=== PATIENT | male | born 1965 | race Two or more races ===

== ENCOUNTER 2025-02-17 23:10 | Emergency (ER) | payer MEDICARE, MEDICAID, SELFPAY ==
[2025-02-17 23:13] VITALS: BMI 26.2
--- NOTE | 2025-02-17 23:22 | EKG_ITS ---
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
[2025-02-17 23:36] VITALS: BP 148/94; PULSE 87; RESP 20; TEMP 36.7; O2SAT 96
--- NOTE | 2025-02-17 23:53 | XR_ITS ---
Examination: PA chest single view TECHNIQUE: Upright PA chest single view Date and time: February 18, 2025, 0013 hours, comparison April 03, 2015 INDICATIONS: Chest pain weakness today. FINDINGS: Normal heart size. Lungs are clear. The osseous structures are intact IMPRESSION: No active disease.
--- NOTE | 2025-02-17 23:53 | PD.EDRME ---
Rapid Medical Screening Exam RME Arrival date/time: 02/17/25 23:10 59M with history of HTN (been rationing HTN meds due to trying to find a PCP) presents to ED with 1 day of ALFARO, back, and weakness. Patient checked BP and it was high. Chief Complaint: General Adult/Misc Complain Time Seen by Provider: 02/18/25 00:59 Vital signs: Vital Signs Temperature 98.1 F 02/17/25 23:36 Pulse Rate 87 02/17/25 23:36 Respiratory Rate 20 02/17/25 23:36 Blood Pressure 148/94 H 02/17/25 23:36 Pulse Oximetry (%) 96 02/17/25 23:36 Oxygen Delivery Method Room Air 02/17/25 23:36
[2025-02-18 00:39] LABS: Collection Type, Urine Clean Catch
[2025-02-18 00:46] LABS: Bilirubin,Urine Negative (Negative); Blood,Urine Negative (Negative); Clarity,Urine Clear (Clear/Hazy); Color,Urine Lt-Yellow (Lt Yel-Yel); Culture Indicated,Urine Not Indicated; Glucose, Urine Negative (Negative); Ketones,Urine Negative (Negative); Leukocyte Esterase,Urine Negative (Negative); Nitrite,Urine Negative (Negative); PH,Urine 6.0 (5.0-7.0); Protein,Urine Trace (Neg - Trace); RBC,Urine 2 /hpf (0-3); Specific Gravity,Urine 1.024 (1.001-1.035); Squamous Epithelial Cell,Urine 1 /hpf (0-5); Urobilinogen,Urine Negative mg/dL (0.0-1.0); WBC,Urine 2 /hpf (0-5)
[2025-02-18 00:54] LABS: Amphetamine/Methamp Scrn,U Negative (Negative); Barbiturate Screen,Urine Negative (Negative); Benzodiazepines Screen,Urine Negative (Negative); Benzoylecgonine Screen, Ur Negative (Negative); Fentanyl Screen,Urine Negative (Negative); Opiate Screen,Urine Negative (Negative); THC Screen,Urine Positive (Negative)
[2025-02-18 01:12] LABS: Alanine Aminotransferase 20 U/L (10-49); Albumin, Serum 4.9 gm/dL (3.4-4.8); Albumin/Globulin Ratio 1.6 (1.2-2.2); Alkaline Phosphatase 83 U/L (46-116); Anion Gap 8 (7-16); Aspartate Amino Transferase 21 U/L (0-34); BUN/Creatinine Ratio 9 Ratio (12-20); Basophils # (Auto) 0.1 Thou/mm3 (0.0-0.2); Basophils % (Auto) 1 % (0-2.5); Bilirubin,Total 0.4 mg/dL (0.3-1.2); Blood Urea Nitrogen 13 mg/dL (9-23); Calcium 10.1 mg/dL (8.3-10.6); Calcium (Corrected) 10.1 mg/dL (8.5-10.1); Carbon Dioxide 25.7 mMol/L (20.0-31.0); Chloride 106 mMol/L (98-107); Creatinine (Component) 1.4 mg/dL (0.6-1.3); Eosinophils # (Auto) 0.0 Thou/mm3 (0.0-0.5); Eosinophils % (Auto) 0 % (0-10); Estimated Creatinine Clearance 59.0 mL/min (>60); Globulin 3.0 gm/dL (2.3-3.5); Glucose 99 mg/dL (74-106); Hematocrit 41.6 % (41.0-53.0); Hemoglobin 13.9 g/dL (13.5-16.0); Immature Granulocytes Auto 0.02 Thou/mm3 (0.00-0.00); Lymphocytes # (Auto) 1.8 Thou/mm3 (1.0-4.8); Lymphocytes % (Auto) 23 % (10-50); Mean Corpuscular HGB Conc 33.4 g/dl (31.0-37.0); Mean Corpuscular Hemoglobin 30.8 pg (25.0-35.0); Mean Corpuscular Volume 92 fL (80-100); Monocytes # (Auto) 1.1 Thou/mm3 (0.0-0.8); Monocytes % (Auto) 14 % (0-12); Neutrophils # (Auto) 4.7 Thou/mm3 (1.8-7.7); Neutrophils % (Auto) 62 % (37-80); Nucleated Red Blood Cell # 0.00 Thou/mm3 (0.00-0.00); Nucleated Red Blood Cell % 0 /100 WBC (0); Osmolality,Calculated 279 (275-295); Platelet Count 254 Thou/mm3 (140-440); Potassium 4.2 mMol/L (3.4-5.1); RDW Standard Deviation 47.6 fL (35.1-43.9); Red Blood Count 4.52 Miln/mm3 (4.50-5.90); Sodium 140 mMol/L (136-145); Total Protein 7.9 gm/dL (5.7-8.2); Troponin I < 0.020 ng/mL (0.0-0.045); White Blood Count 7.7 Thou/mm3 (3.8-10.6); eGFR 57 See Note
--- NOTE | 2025-02-18 02:32 | PD.EDRECHK ---
ED Recheck Abnl Lab Rx-RME/HPI General Chief Complaint: General Adult/Misc Complain Stated Complaint: HIGH BP TODAY Time Seen by Provider: 02/18/25 00:59 Arrival date/time: 02/17/25 23:10 RME / HPI RME / HPI narrative: 02/17/25 23:10 59M with history of HTN (been rationing HTN meds due to trying to find a PCP) presents to ED with 1 day of ALFARO, back, and weakness. Patient checked BP and it was high. DR. NIEVES MAIN ED EVALUATION: Patient with longstanding HTN off Lisinopril x 1 week due to insurance change and inability to obtain medication with recent onset headache, blood pressure of 198/103 at home. No nausea, vomiting, visual disturbances or disequilibrium. No report of chest pain or shortness or breath. PMH includes HTN only. SHx includes elbow surgery. Social history includes occasional tobacco use, but no alcohol or illicit drug use. No allergies reported. Related Data Home Medications ?Medication ?Instructions ?Recorded ?Confirmed lisinopril 20 mg tablet 20 mg PO QDAY #0 tabs 01/30/16 Previous Rx's ?Medication ?Instructions ?Recorded Hydrocodone/Acetaminophen * (NORCO 1 tab PO Q6H PRN pain #15 tabs 01/30/16 5/325 *) lisinopril 10 mg tablet 10 mg PO QDAY #30 tabs 02/18/25 Allergies Allergy/AdvReac Type Severity Reaction Status Date / Time NKA* Allergy Uncoded 02/17/25 23:21 Review of Systems Review of Systems Systems Reviewed: All systems reviewed, normal except as documented Past Medical History Past Medical History CARDIAC: Positive Hypertension Social History SMOKING STATUS: Current some day smoker ED Exam Narrative Physical exam: GEN. APPEARANCE: The patient is alert awake oriented X-3 in no distress, lying down comfortably, does not look ill/toxic. Patient has good eye contact. Patient is cooperative. Marginally elevated BP of 148/94. VITALS: All vitals were reviewed and the pulse ox is 99% on room air which is normal according to my interpretation. HEENT: Normocephalic, atraumatic. Pupils are equal and reactive. Oral mucosa is moist. Patent Nares NECK: Supple, nontender, no thyromegaly, no meningismus, no JVD, no step offs CHEST: Symmetrical, atraumatic, and with equal expansion , Nontender on palpation no deformity and no crepitus. CARDIOVASCULAR: Heart regular rhythm no murmur or gallop rub or extra beats. LUNGS: Clear to auscultation bilaterally with symmetrical chest rise. No laboring tachypnea or wheezing. No intercostal subcostal retraction. No rales and no rhonchi. ABDOMEN: Soft, flat, nontender to palpation, no guarding or rebound tenderness. There are no abnormal masses palpated. Active and normal bowel sounds. EXTREMITIES: Nontender. No edema. No cyanosis. Patient is able to move all 4 extremities well, with full ROM and good CSM. SKIN: Warm and dry, no jaundice or rashes noted. MUSCULOSKELETAL: No lubar or midline bony tenderness. There is no CVA tenderness. No paraspinal muscle spasm or tenderness. NEURO: Patient is BLAIR x 4, Cranial nerves II through XII grossly intact. There is no focal neurologic deficits noted. GCS is 15, PNS and ATHLETIC EQUIPMENT CUSTODIAN appear grossly intact. PSYCHIATRIC: Patient is in normal mood and affect, cooperative, no SI or HI or hallucinations. Course Course Course Narrative: CXR was ordered for determining the etiology of shortness of breath. Quality Measures none Orders Category Date Time Status EKG (ED ONLY) *Do not use* NOW Care 02/17/25 23:22 Completed EKG (ED Only) Stat Exams 02/17/25 23:22 Draft XR chest 1V portable Stat Exams 02/17/25 23:53 Taken CBC Stat Lab 02/17/25 23:53 Completed Comprehensive Metabolic Panel Stat Lab 02/17/25 23:53 Completed Drug Screen,Urine Stat Lab 02/18/25 00:30 Completed Troponin I Stat Lab 02/17/25 23:53 Completed Urinalysis, C/S if Indicated Stat Lab 02/18/25 00:30 Completed Lisinopril [Prinivil] Med 02/18/25 02:44 Discontinued 10 mg PO X1 ONE Vital Signs Vital signs: Vital Signs Temperature 98.1 F 02/17/25 23:36 Pulse Rate 87 02/17/25 23:36 Respiratory Rate 20 02/17/25 23:36 Blood Pressure 148/94 H 02/17/25 23:36 Pulse Oximetry (%) 96 02/17/25 23:36 Oxygen Delivery Method Room Air 02/17/25 23:36 Recheck / Abnormal Lab / Rx MDM Narrative MDM Narrative:: Scribe Attestation: Mor Lawandakimberly Fletcher, am scribing for and in the presence of Dr. Nieves. Provider Notation: Although this document has been carefully reviewed, there may still be some phonetic and other typographical errors. These errors are purely grammatical due to imperfections in the software program and should not be construed in any way to?compromise the substance of the patient's medical care during this visit. Patient with longstanding HTN off Lisinopril x 1 week due to insurance change and inability to obtain medication with recent onset headache, blood pressure of 198/103 at home. No nausea, vomiting, visual disturbances or disequilibrium. Please see PE findings. Lab markers including CBC and serum chemistries were unremarkable excluding creatinine of 1.4, UA without evidence of protein urea. EKG without acute changes. Chest x-ray demonstrates normal cardiac silhouette/mediastinum. No acute findings. No signs or end organ damage. Will reinstitute Lisinopril therapy and will discharge home. Patient data External records reviewed:: [facility] previous records (No prior ED records available for review.) Clinical information provided by:: patient Social determinants that could affect healthcare access:: alcohol use Patient has the following chronic illnesses:: HTN How is presenting disease/condition affected by chronic disease/condition?: exacerbated by Evaluation data The following diagnostics were reviewed and interpreted by me:: lab results, radiology exam(s) and EKG tracing(s) Lab and/or radiology exams considered but not ordered:: None Interpretation Summary: RADIOLOGY Chest X-Ray: Pending official radiology report. Medications / Prescriptions Medications or Prescriptions considered but not ordered:: None Medication administrations:: Medication Administration History Discontinued Medications Lisinopril (Lisinopril 2.5 Mg Tablet) 10 mg PO X1 ONE Stop: 02/18/25 02:45 Last Admin: 02/18/25 03:29 Dose: 10 mg Documented By: OLIVER See above if any. Consultations Consultation(s) initiated? (list below): No Diagnosis Recheck Differential Diagnosis: encounter for medication refill and other (Anxiety disorder, Hypertensive urgency vs emergency) Most likely diagnosis given after review of the tests above:: Hypertension Admission Indicated Admission indicated?: not indicated Explain why admission is indicated or not indicated:: Patient does not meet admission criteria. Admission Request Was there a request for admission?: No Disposition Plan Disposition Plan: Discharge Discharge Attestation Discharge Attestation: The patient and all family members were given an opportunity to ask questions and understood the discharge instructions. Discharge instructions specifically effects, indications for sooner follow up or return to the emergency department, and the expected course of current diagnosis. Patient condition: Stable Discharge Plan Plan Patient Disposition: HOME (Self Care) Discharge Disposition comment: stable Prescriptions/Referrals Prescriptions/Med Rec: New lisinopril 10 mg tablet 10 mg PO QDAY MDD 20 mg Qty: 30 1RF No Action lisinopril 20 MG tablet 20 mg PO QDAY Qty: 0 Hydrocodone/Acetaminophen * (NORCO 5/325 *) 1 TAB tablet 1 tab PO Q6H PRN (Reason: pain) Qty: 15 0RF Referrals: No Primary/Family,Physician [Primary Care Provider] - In 1 week Problem List Clinical Impression: Hypertension Patient/Caregiver Discharge Instructions Discharge Activity: activity as tolerated Diet Instructions: Reduce caffeine salt intake Additional Instructions: Begin lisinopril 10 mg daily. Increase to twice daily if systolic blood pressures consistently greater than 160 or diastolic greater than 100. Follow-up with PMD 2 to 4 weeks. Print Language: Mongolian Stand Alone Forms: Viviana Award Info., Patient Portal Info Letter
[2025-02-18 02:36] VITALS: BP 152/89; PULSE 88; RESP 18
[2025-02-18 03:29] VITALS: BP 158/84; PULSE 86
== END 2025-02-18 03:30 | disposition home or self-care (01) ==
PROVIDERS: Physician Assistant; Emergency Provider Emergency Medicine
DX: I10 Essential (primary) hypertension (principal); R07.9 Chest pain, unspecified
CPT/HCPCS: 36415; 71045; 80053; 80307; 81001; 84484; 85025; 93005; 99283; A9270

== ENCOUNTER 2025-02-20 10:48 | Emergency (ER) | payer MEDICARE, MEDICAID, SELFPAY ==
[2025-02-20 11:05] VITALS: BP 145/90; PULSE 91; RESP 18; TEMP 36.8; O2SAT 96
--- NOTE | 2025-02-20 11:28 | PD.EDADULT ---
ED General RME/HPI General Chief complaint: General Adult/Misc Complain Stated complaint: BP 198/103; BILATERAL SHOULDER PAIN, 01/30 Time Seen by Provider: 02/20/25 11:00 Arrival date/time: 02/20/25 10:48 CC: Body aches elevated blood pressure HPI patient was seen here 2 days ago for the same symptoms. Patient states his daughter was diagnosed with COVID approximately 1 week ago. Patient denies fever shortness of breath chest pain or difficulty breathing. 2 days ago was given antihypertensive medication which the patient continues to take. Patient is awake alert oriented initial blood pressure is 145/90. Patient is not in any acute distress. Related Data Home Medications ?Medication ?Instructions ?Recorded ?Confirmed lisinopril 20 mg tablet 20 mg PO QDAY #0 tabs 01/30/16 Previous Rx's ?Medication ?Instructions ?Recorded Hydrocodone/Acetaminophen * (NORCO 1 tab PO Q6H PRN pain #15 tabs 01/30/16 5/325 *) lisinopril 10 mg tablet 10 mg PO QDAY #30 tabs 02/18/25 Allergies Allergy/AdvReac Type Severity Reaction Status Date / Time No Known Allergies Allergy Verified 02/20/25 10:51 Review of Systems Review of Systems Narrative Review of Systems: GEN: No fever, no chills, no weight loss EYES: No discharge, no visual changes, no pain HEENT: No ear pain, no congestion, no sore throat PULM: No shortness of breath, no cough, no congestion CV: No chest pain, no dyspnea on exertion, no palpitations GI: No nausea, no vomiting, no diarrhea, no pain, no constipation : No frequency, no urgency, no dysuria MUSC/SKEL: No joint pain, no back pain SKIN: No rash PSYCH: No hallucinations, no depression HEME/LYMPH: No easy bleeding or bruising tendencies NEURO: No weakness, no headache, + body aches Past Medical History Past Medical History CARDIAC: Positive Hypertension Social History SMOKING STATUS: Current every day smoker ED Exam Narrative Physical exam: [General: Not in any acute distress Head normocephalic HEENT: Eyes pupils are PERRLA EOMs are intact mouth pink moist membranes uvula is midline swallow symmetrical phonation is normal. All other subsystems of HEENT are within acceptable limits Neck is supple nontender Chest equal chest rise nontender to palpation Respiratory: Clear to auscultation no wheezes crackles or rubs. No tachypnea CV: Rate rhythm is regular no murmurs rubs or clicks Abdomen is distended secondary to body habitus soft nontender no masses positive bowel sounds all 4 quadrants Back: No CVA tenderness no spinous process tenderness from cervical spine thoracic and lumbar spine Skin: Intact no petechiae rash induration ulceration or crepitus Extremities: Moving all extremity against resistance cap refill less than 2 seconds neurosensory intact Neuro: Awake alert oriented x3 Glascow coma 15 no focal deficits] Course Quality Measures none Vital Signs Vital signs: Vital Signs Temperature 98.2 F 02/20/25 11:05 Pulse Rate 91 02/20/25 11:05 Respiratory Rate 18 02/20/25 11:05 Blood Pressure 145/90 H 02/20/25 11:05 Pulse Oximetry (%) 96 02/20/25 11:05 Oxygen Delivery Method Room Air 02/20/25 11:05 Discharge Plan Plan Patient Disposition: HOME (Self Care) Patient condition on transfer: Stable Prescriptions/Referrals Prescriptions/Med Rec: No Action lisinopril 20 MG tablet 20 mg PO QDAY Qty: 0 Hydrocodone/Acetaminophen * (NORCO 5/325 *) 1 TAB tablet 1 tab PO Q6H PRN (Reason: pain) Qty: 15 0RF lisinopril 10 mg tablet 10 mg PO QDAY MDD 20 mg Qty: 30 1RF Referrals: Mic Alonso MD [Physician] - In 1 week Problem List Clinical Impression: COVID Patient/Caregiver Discharge Instructions Education Materials: COVID-19 Home Care Additional Instructions: Rest, drink plenty of fluids ibuprofen or Tylenol for fever and/or pain. Continue to take the lisinopril prescribed you 2 days ago. Assume that all other persons in your home are exposed and will ultimately develop symptoms at some point in the future. Follow-up with the primary care doctor listed above if there is worsening of symptoms in spite of the medications return the emergency room immediately for further evaluation Print Language: Occitan Stand Alone Forms: Viviana Award Info., Work/School Release, Patient Portal Info Letter PA/SCREEN PRINT OPERATOR Supervising Physician PA/SCREEN PRINT OPERATOR Supervising Physician: Jose Maria Real ENP MDM Clinical Information Provided by patient Medical Records Reviewed [facility] Meds/Rx Considered, not Ordered None Labs/Rad/Tests considered, not Ordered None EKG EKG not done Lab Interpretation Labs: none Imaging Imaging interpretation: none Radiology reports / interpretation(s): Patient is explained that he has labile pressure secondary to COVID is probably mildly elevated to follow-up with a primary care provider. Diagnosis Differential diagnosis: COVID Dispositon Disposition: Discharge Home
== END 2025-02-20 11:46 | disposition home or self-care (01) ==
LOC: SERX 12:19
PROVIDERS: Emergency Provider Family Medicine
DX: U07.1 COVID-19 (principal)
CPT/HCPCS: 87400; 87811; 99281